=== PATIENT | male | born 1935 | race Caucasian/White ===

== ENCOUNTER 2016-09-07 15:04 | Observation (INO) ==
[2016-09-07] MEDS ORDERED: ONDANSETRON 4 MG/2 ML VIAL IV STA (16:40)
[2016-09-07] MEDS ORDERED: MORPHINE 2 MG/1 ML SYRINGE IV STA ×2 (16:40→18:12)
[2016-09-07] MEDS ORDERED: ONDANSETRON 4 MG/2 ML VIAL ONE (16:52)
[2016-09-07] MEDS ORDERED: MORPHINE 2 MG/1 ML SYRINGE ONE ×2 (16:52→18:35)
[2016-09-07 17:00] LABS: Basophils % 0.2 % (0.0-0.8); Eosinophils # 0.3 10*3/uL (0.0-0.87); Eosinophils % 3.1 % (0.00-10.9); Hematocrit 27.5 VOL% (42.0-52.0); Hemoglobin 9.4 GM/DL (14.0-18.0); Immature Granulocytes % 0.8 %; Immature Granulocytes Absolute 0.07 #; Lymphocytes # 1.1 10*3/uL (1.4-4.0); Lymphocytes % 12.9 % (21.2-54.2); Mean Corpuscular HGB Conc 34.2 GM/DL (32-36); Mean Corpuscular Hemoglobin 31 PG (27-34); Mean Corpuscular Volume 89.9 FL (87-102); Mean Platelet Volume 9.5 FL (9.6-12.0); Monocytes # 0.8 10*3/uL (0.11-0.8); Monocytes % 9.7 % (1.7-12.7); Neutrophils # 6.1 10*3/uL (1.4-7.4); Neutrophils % 73.3 % (38.7-73.9); Platelet Count 334 T/CUMM (130-400); Red Blood Count 3.06 MC/CUMM (3.8-5.5); Red Cell Distribution Width 13.5 % (9.3-17.3); White Blood Count 8.4 T/CUMM (4-12)
[2016-09-07 17:27] LABS: Apearance,Urine Slightly Hazy (Clear); Bilirubin,Urine Negative (Negative); Blood, Urine Moderate mg/dL (Negative); Glucose,Urine (UA) Negative (Negative); Ketones,Urine 5 mg/dL (Negative); Mucus,Urine Occasional /LPF (Occasional); Nitrite,Urine Negative (Negative); Protein,Urine 30 MG/DL; RBC,Urine 64 /HPF (0-4); Squamous Epithelial Cell,Urine Occasional /HPF (0-10); Urine Color Yellow (Yellow); Urine Specific Gravity 1.012 (1.001-1.035); Urine Urobilinogen < 2.0 EU/DL (0.2-1.0); WBC,Urine 3 /HPF (0-6)
[2016-09-07 17:32] LABS: Osmolality,Calculated 270.1 MOS/KG (273-304); Potassium 3.8 MMOL/L (3.5-5.1)
--- NOTE | 2016-09-07 17:42 | Ultrasound Report ---
Indication: Lower extremity swelling Duplex scan of the bilateral lower extremity veins Technique: Duplex scan of the bilateral lower extremity veins using B-mode/grayscale imaging and Doppler spectral analysis and color flow Findings: Major venous structures of the bilateral lower extremity demonstrate a normal course and caliber. There is no evidence of deep vein thrombosis. No abnormal intrinsic echogenic lesions are demonstrated in the scanned blood vessels. Veins demonstrate good compressibility with normal color flow study and spectral analysis. Impression: Unremarkable duplex imaging of the bilateral lower extremity veins. No evidence of DVT PROCEDURE INTERPRETED AT [facility] DEPARTMENT OF RADIOLOGY Final Report Signed by: Dakota Car
--- NOTE | 2016-09-07 17:58 | XRay Report ---
Exam: XR chest 1V portable Indication: Cough Comparison study: 10/16/2009 Findings: Cardiac silhouette is mildly enlarged, similar to prior. There is mild central and basilar interstitial prominence which appears similar to prior and likely represents underlying scarring. No definite focal consolidation is identified. There is no pneumothorax or pleural effusion. Similar mild prominence of the perihilar regions may represent prominent vascular structures, as seen previously, but is otherwise indeterminant. Impression: No acute cardiopulmonary process. Suggestion of mild cardiomegaly and underlying interstitial scarring changes. PROCEDURE INTERPRETED AT [facility] DEPARTMENT OF RADIOLOGY Final Report Signed by: Dakota Car
--- NOTE | 2016-09-07 18:29 | Hospitalist History & Physical ---
Assessment and Plan (1) s/p herniated disk repair Status: Acute Assessment and plan: Pt. is s/p herniated disk repair at outside facility. Brought into our non- urgent care department for placement. Pt. will be admitted for observation overnight. Pain medication ordered prn for pain. Consult to social media strategist for rehab placement. Current Visit: Yes (2) Hypertension Status: Acute Assessment and plan: Monitor patient. Continue home medications. Current Visit: Yes (3) Liver lesion Status: Chronic Current Visit: Yes History of Present Illness Chief complaint: swelling in lower extremities/pain History of present illness: Mr. Zepeda is a 80 year old white male with a history of htn, pneumonia, bronchitis, and a liver lesion who is s/p herniated disk repair on 08/29 at [facility] who presented to the ED with pain. Pt. is accompanied by niece and other family who are present at the bedside. Pt was hospitalized from 08/29 to 09/06 at [facility] before being discharged yesterday. After discharge, pt went the [facility] rehab facility but later discharged himself. Pt. states that the rehab facility did not restart any medications and his pain was uncontrolled. Pt. also reports bilateral lower extremity edema and other issues with the nursing staff. Pt. wishes to be referred to another facility. Pt. currently has anders cath in place after issue with retention during stay. He is scheduled to follow up tomorrow with Dr. Anderson to address this issue. The patient denies fever, chills, CP, shortness of breath, abdominal pain. Pt does however report a cough and said he had night sweats. Pt will be admitted to the hospital for observation with a consult to social media strategist for placement. Home Medications Medication Instructions Recorded Confirmed Type Esomeprazole Magnesium [Nexium] 40 mg PO DAILY 08/17/14 09/07/16 History Pravastatin [Pravachol] 20 mg PO QAM 08/17/14 09/07/16 History Aspirin [Aspirin EC] 81 mg PO DAILY 09/07/16 09/07/16 History Cholecalciferol (Vitamin D3) 1,000 unit PO QAM 09/07/16 09/07/16 History [Vitamin D3] Cyanocobalamin Tab [Vitamin B12 500 mcg PO QAM 09/07/16 09/07/16 History Tab] Diazepam Tab [Valium Tab] 5 mg PO TID PRN 09/07/16 09/07/16 History HYDROcodone/ACETAMIN 10-325 [[place] 1 tablet PO BID 09/07/16 09/07/16 History 10-325] Lisinopril 20 mg PO BID 09/07/16 09/07/16 History Magnesium Citrate 296 ml PO BID 09/07/16 09/07/16 History Potassium 99 mg PO QAM 09/07/16 09/07/16 History Tamsulosin HCl 0.4 mg PO DAILY 09/07/16 09/07/16 History Allergies Allergy/AdvReac Type Severity Reaction Status Date / Time Sulfa (Sulfonamide Allergy Severe Palpitation Verified 07/04/15 08:03 Antibiotics) s Medical,Surgical,& Family Hx - Medical History Cardio: History of: Hypertension Psychological: History of: Depression Neurology: No history of: Seizures HEENT: History of: Eye Problem (GLASSES) Endocrine: History of: Dyslipidemia Rheumatology: History of;: Rheumatoid Arthritis Respiratory: History of: Respiratory Problems (SINUS SURGERY) Genitourinary: History of: Bladder Problem (TURB), Problems (ON MED FOR URINATING PROBLEM) Gastrointestinal: History of: 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 - Surgical History Cardiac Surgeries: Sugical HX of: Cardiac Catheterization HEENT Surgeries: Surgical HX of: Eye Surgery (CATARACTS), Tonsilectomy & Adenoidectomy Abdominal Surgeries: Surgical HX of: Colonoscopy, EGD Reproductive Surgeries: Surgical HX of;: Cystoscopy, Genitourinary Surgery Orthopedic Surgeries: Surgical HX of;: Orthopedic Surgery (L3 4 5 SURGERY LEFT SHOULDER) - Family History Family History: Reports;: Family Heart Disease (FATHER) - Social History Smoking Status: Never smoker Frequency of Alcohol Use: None Type of Drug Use: None - Constitutional Constitutional: Present: fatigue, night sweats. Absent: fever(s), headache(s) - EENT Eyes: Present: loss of vision, requires corrective lense Ears: Absent: decreased hearing, ear discharge Nose, mouth and throat: Absent: headache(s), sore throat - Cardiovascular Cardiovascular: Present: edema. Absent: chest pain at rest, lightheadedness - Respiratory Respiratory: Absent: cough, dyspnea on exertion - Gastrointestinal Gastrointestinal: Absent: abdominal pain, nausea, vomiting - Genitourinary Genitourinary: Present: other (pt. has anders cath in place from outside facility ) - Musculoskeletal Musculoskeletal: Present: limited range of motion, muscle weakness - Neurological Neurological: Absent: confusion, dizziness - Psychiatric Psychiatric: Absent: anxiety, confusion - Endocrine Endocrine: Absent: fatigue - Hematologic/Lymphatic Hematologic/Lymphatic: Present: easy bruising. Absent: easy bleeding Exam - Constitutional Vitals: Period Temp Pulse Resp BP Sys/Wild Pulse Ox Last 24 Hr 98.1 F 95 20 160/104 99 General appearance: normal weight, no acute distress - Head Head exam: Present: normal inspection, normocephalic - Eye Eye exam: Present: EOMI. Absent: scleral icterus Pupils: Present: ARTEMIO. Absent: dilated - Neck Neck exam: Present: normal inspection - Respiratory Respiratory exam: Present: clear to auscultation bilaterally - Cardiovascular Cardiovascular exam: Present: regular rate and rhythm - GI/Abdominal GI/Abdominal exam: Present: normal bowel sounds, soft. Absent: tenderness - Extremities Exam Extremities exam: Present: normal capillary refill, full ROM, edema (bilateral lower extremity edema) - Neurological Exam Neurological exam: Present: alert, oriented X3, abnormal gait (pt. states he is unable to ambulate ) - Psychiatric Psychiatric exam: Present: normal affect, normal mood - Skin Skin exam: Present: normal color, warm, dry Results - Labs CBC & BMP: 09/07/16 16:47 09/07/16 16:47 Lab Results: I have reviewed the past 24 hour labs
--- NOTE | 2016-09-07 18:43 | Emergency Department Note ---
Rocael Sena Brittany, am scribing for, and in the presence of, Samina De Leon MD 16:45. Moises Sena Kathryn, MD, personally performed the services described in this documentation, ascribed by Indy Cote in my presence, and it is both accurate and complete [id number] . Arrival - Arrival Chief Complaint: Extremity Problem Stated Complaint: swelling in feet and leg/pain in legs,back,feet ED Nursing Triage Note: Pt has back surgery 08/29/16 at [facility] - pt states that he has been having edema to lower extremities since the surgery - pt was d/ c from [facility] yesterday and was sent to [facility] - pt signed out of [facility] and is not going back Mode of Arrival: Wheelchair Limitations: No Limitations Source: Patient - History of Present Illness HPI Narrative: This is an 80 y/o white male, who presents to the ED with back pain. He had a herniated disc repaired [id number] at [facility], was discharged the to the [facility] for rehab. Patient checked himself out of rehab yesterday secondary to uncontrolled pain (and not receiving pain meds), lower extremity swelling, and problems with the nursing staff. He has had worsening bilatearl lower extremity swelling since his surgery. He currently has a anders placed secondary to urinary retention post-operatively - he is supposed to call for follow up with Dr. Anderson tomorrow. He has been having cough and night sweats. He denies any CP, shortness of breath, palpitations, or abdominal pain. Last BM was yesterday. Onset (ago): day(s) (Started 9 days ago) Consistency: constant Severity: moderate Allergies/Adverse Reactions: Allergies Allergy/AdvReac Type Severity Reaction Status Date / Time Sulfa (Sulfonamide Allergy Severe Palpitation Verified 07/04/15 08:03 Antibiotics) s Home Medications: Home Medications Medication Instructions Recorded Confirmed Type Esomeprazole Magnesium [Nexium] 40 mg PO DAILY 08/17/14 09/07/16 History Pravastatin [Pravachol] 20 mg PO QAM 08/17/14 09/07/16 History Aspirin [Aspirin EC] 81 mg PO DAILY 09/07/16 09/07/16 History Cholecalciferol (Vitamin D3) 1,000 unit PO QAM 09/07/16 09/07/16 History [Vitamin D3] Cyanocobalamin Tab [Vitamin B12 500 mcg PO QAM 09/07/16 09/07/16 History Tab] Diazepam Tab [Valium Tab] 5 mg PO TID PRN 09/07/16 09/07/16 History HYDROcodone/ACETAMIN 10-325 [[place] 1 tablet PO BID 09/07/16 09/07/16 History 10-325] Lisinopril 20 mg PO BID 09/07/16 09/07/16 History Magnesium Citrate 296 ml PO BID 09/07/16 09/07/16 History Potassium 99 mg PO QAM 09/07/16 09/07/16 History Tamsulosin HCl 0.4 mg PO DAILY 09/07/16 09/07/16 History Review of System - Review of System 12 point system: reviewed and no additional remarkable complaints except as stated - Review of System Constitutional: Present: chills, fever Cardiovascular: Absent: chest pain Gastrointestinal: Absent: abdominal pain Musculoskeletal: Present: back pain, leg pain, other (Leg edema) Medical,Surgical,& Family Hx - Medical History Cardio: History of: Hypertension Psychological: History of: Depression Neurology: No history of: Seizures HEENT: History of: Eye Problem (GLASSES) Endocrine: History of: Dyslipidemia Rheumatology: History of;: Rheumatoid Arthritis Respiratory: History of: Respiratory Problems (SINUS SURGERY) Genitourinary: History of: Bladder Problem (TURB), Problems (ON MED FOR URINATING PROBLEM) Gastrointestinal: History of: 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 - Surgical History Cardiac Surgeries: Sugical HX of: Cardiac Catheterization HEENT Surgeries: Surgical HX of: Eye Surgery (CATARACTS), Tonsilectomy & Adenoidectomy Abdominal Surgeries: Surgical HX of: Colonoscopy, EGD Reproductive Surgeries: Surgical HX of;: Cystoscopy, Genitourinary Surgery Orthopedic Surgeries: Surgical HX of;: Orthopedic Surgery (L3 4 5 SURGERY LEFT SHOULDER) - Family History Family History: Reports;: Family Heart Disease (FATHER) - Social History Smoking Status: Never smoker Frequency of Alcohol Use: None Type of Drug Use: None Lives With:: Alone Exam Vital Signs: Vital Signs Temperature 98.1 F 09/07/16 15:12 Pulse Rate 95 H 09/07/16 15:12 Respiratory Rate 20 09/07/16 15:12 Blood Pressure 160/104 09/07/16 15:12 O2 Sat by Pulse Oximetry 99 09/07/16 15:12 - General General appearance: alert, in no apparent distress - Eye Eye exam: Present: normal appearance, PERRL, EOMI - ENT ENT exam: Present: normal exam, normal oropharynx, mucous membranes moist - Neck Neck exam: Present: normal inspection, full ROM, trachea midline - Chest Chest inspection: Present: normal inspection, symmetric chest wall rise. Absent : tenderness - Respiratory Respiratory exam: Present: normal lung sounds bilaterally. Absent: rales, rhonchi, wheezes - Cardiovascular Cardiovascular exam: Present: regular rate, normal rhythm, normal heart sounds. Absent: murmur, rubs, gallop - Abdominal Exam Abdominal exam: Present: soft, normal bowel sounds. Absent: distention, tenderness - Extremities Exam Extremities exam: Present: other (pitting edema to knees) - Neurological Exam Neurological exam: Present: alert, oriented X3, CN II-XII intact - Psychiatric Psychiatric exam: Present: normal affect, normal mood - Skin Skin exam: Present: warm, dry, intact Course Course Narrative: Review of documentation from [facility] brought by family - Surgery performed 28APR. At time of discharge, noted to have right foot drop (started post surgery). Patient was to schedule follow up with Dr. Anderson for urinary retention (anders placed 09/01). Follow up with [facility] Dr. Romero 09APR. Discussed with hospitalist for admission for pain control and transfer to new rehab center. Results - Labs CBC & BMP: 09/07/16 16:47 09/07/16 16:47 Lab Results: I have reviewed the patients labs Labs: Laboratory Tests 09/07/16 09/07/16 09/07/16 16:47 16:47 16:47 WBC 8.4 RBC 3.06 L Hgb 9.4 L Hct 27.5 L MCV 89.9 MCH 31 MCHC 34.2 RDW 13.5 Plt Count 334 MPV 9.5 L Neut % (Auto) 73.3 Lymph % (Auto) 12.9 L [place] % (Auto) 9.7 Eos % (Auto) 3.1 Baso % (Auto) 0.2 Neut # (Auto) 6.1 Lymph # (Auto) 1.1 L [place] # (Auto) 0.8 Eos # (Auto) 0.3 Baso # (Auto) 0.0 Immature Gran % 0.8 Nucleated RBC % 0.0 Immature Gran # 0.07 Nucleated RBCs # 0.00 Sodium 135 L Potassium 3.8 Chloride 100 Carbon Dioxide 26 Anion Gap 12.8 BUN 15 Creatinine 0.80 GFR Calculation 100 BUN/Creatinine Ratio 18.00 Glucose 97 Calculated Osmolality 270.1 L Calcium 8.0 L Urine Color Yellow Urine Appearance Slightly hazy Urine pH 7.0 Ur Specific [place] 1.012 Urine Protein 30 Urine Glucose (UA) Negative Urine Ketones 5 Urine Blood Moderate Urine Nitrate Negative Urine Bilirubin Negative Urine Urobilinogen < 2.0 H Urine Leukocytes Negative Urine RBC 64 Urine WBC 3 Ur Squamous Epith Cells Occasional Urine Mucus Occasional Ur Culture Indicated? Not indicated - Diagnostic Findings Procedure: Chest x-ray: report reviewed by me (No acute cardiopulmonary process.Suggestion of mild cardiomegaly and underlying interstitial scarring changes. ), Ultrasound: report reviewed by me (Venous Doppler Study: Unremarkable. No evidence of DVT. ) Disposition Clinical Impression: Previous back surgery, Back pain, Anders catheter in place on admission, Swelling of lower extremity Case discussed with: patient, patient's family Disposition: Still a Patient Condition: Stable Time of Disposition: 18:42
[2016-09-07] MEDS ORDERED: ACETAMINOPHEN 325 MG TABLET PO PRN (21:03)
[2016-09-07] MEDS ORDERED: ONDANSETRON 4 MG/2 ML VIAL IV PRN (21:03)
[2016-09-07] MEDS ORDERED: DOCUSATE SODIUM 100 MG CAPSULE PO PRN (21:03)
[2016-09-07] MEDS: LISINOPRIL 20 MG TABLET PO SCH (21:39)
[2016-09-07] MEDS: ENOXAPARIN 40 MG/0.4 ML SYRINGE SUBCUT SCH (21:39)
[2016-09-07] MEDS: FUROSEMIDE 20 MG TABLET PO SCH (21:39)
[2016-09-08 04:53] LABS: Basophils % 0.3 % (0.0-0.8); Eosinophils # 0.7 10*3/uL (0.0-0.87); Hematocrit 23.3 VOL% (42.0-52.0); Hemoglobin 7.9 GM/DL (14.0-18.0); Immature Granulocytes % 0.9 %; Immature Granulocytes Absolute 0.06 #; Lymphocytes # 1.2 10*3/uL (1.4-4.0); Lymphocytes % 18.2 % (21.2-54.2); Mean Corpuscular HGB Conc 33.9 GM/DL (32-36); Mean Corpuscular Hemoglobin 31 PG (27-34); Mean Corpuscular Volume 91.7 FL (87-102); Mean Platelet Volume 9.4 FL (9.6-12.0); Monocytes # 0.7 10*3/uL (0.11-0.8); Neutrophils # 4.1 10*3/uL (1.4-7.4); Neutrophils % 60.6 % (38.7-73.9); Platelet Count 299 T/CUMM (130-400); Red Blood Count 2.54 MC/CUMM (3.8-5.5); Red Cell Distribution Width 13.6 % (9.3-17.3); White Blood Count 6.7 T/CUMM (4-12)
[2016-09-08 05:24] LABS: Calcium 7.2 MG/DL (8.5-10.1); Osmolality,Calculated 277.4 MOS/KG (273-304); Potassium 3.5 MMOL/L (3.5-5.1)
[2016-09-08] MEDS: TAMSULOSIN 0.4 MG CAPSULE PO SCH (08:44)
[2016-09-08] MEDS: LISINOPRIL 20 MG TABLET PO SCH ×2 (08:44→20:53)
[2016-09-08] MEDS: FUROSEMIDE 20 MG TABLET PO SCH ×2 (08:44→16:55)
[2016-09-08] MEDS: ASPIRIN EC 81 MG TABLET PO SCH (08:44)
[2016-09-08] MEDS: PRAVASTATIN 20 MG TABLET PO SCH (10:04)
--- NOTE | 2016-09-08 11:54 | Case Mgmt Physician Query Form ---
TB Signs and Symptoms Screening ([place]) INSTRUCTIONS: To be completed annually on residents/staff with a significant Tuberculin Skin Test (TST) upon admission/hire or a prior significant TST. To be completed on all staff at hire. Please respond to each listed symptom with an (X) in either the "YES" or "NO" box. Do you currently have any of the following symptoms: YES NO ( ) ( x) A cough If yes, is it: ( ) Productive ( ) Non- productive ( ) ( x) Hemoptysis (spitting up blood) ( ) (x ) Chest pains ( ) ( x) Weight Loss ( ) (x ) Fever ( ) (x ) Night Sweats ( ) (x ) Weakness ( ) (x ) Loss of Appetite ( ) ( x) Difficulty Breathing If you answered YES" to any of the above questions, how long have symptoms been present? Comments: If you have any questions ,please contact me. Thank You YASMIN Earl, SOLE RUFFER Email :[email or web address]
[2016-09-08] MEDS ORDERED: TUBERCULIN SKIN TEST 0.1 ML SYRINGE INTRADERM ONE (12:05)
--- NOTE | 2016-09-08 12:31 | ECHO Report ---
Marcus Zepeda Exam Date: 09/08/2016 08:51 Referring Physician: Technologist: Traci Dietz LRMYA Age: 80 Ht (in): 71 Wt (lb): 187 Gender: M Exam Location: [facility] Echo Indications: edema, HTN BP: 134 / 63 HR: 77 Rhythm: Sinus Technical Quality: IMPRESSIONS Left ventricular ejection fraction is estimated at 55-60 %. There is mild concentric left ventricular hypertrophy with mild diastolic dysfunction. Mild mitral annular calcification with trace mitral regurgitation. Trace aortic valve regurgitation. Mild tricuspid valve regurgitation. MEASUREMENTS (Male / Female) Normal Values 2D ECHO LV Diastolic Diameter PLAX 4.0 cm 4.2 - 5.9 / 3.9 - 5.3 cm LV Systolic Diameter PLAX 2.9 cm LV Fractional Shortening PLAX 27.3 % IVS Diastolic Thickness 1.5 cm 0.6 - 1.0 / 0.6 - 0.9 cm LVPW Diastolic Thickness 1.5 cm 0.6 - 1.0 / 0.6 - 0.9 cm RV Internal Dim ED PLAX 2.7 cm Aortic Root Diameter 2.7 cm LA Systolic Diameter LX 3.6 cm 3.0 - 4.0 / 2.7 - 3.8 cm DOPPLER TR Peak Velocity 287.0 cm/s TR Peak Gradient 32.9 mmHg FINDINGS Left Ventricle Normal left ventricular size. There is mild concentric left ventricular hypertrophy with mild diastolic dysfunction. Left ventricular ejection fraction is estimated at 55-60 %. Right Ventricle Normal right ventricular size. Right Atrium Normal right atrial size. Left Atrium Normal left atrial size. Mitral Valve Mild mitral annular calcification with trace mitral regurgitation. Aortic Valve Mild aortic valve sclerosis. Trace aortic valve regurgitation. Tricuspid Valve Morphologically normal tricuspid valve. Mild tricuspid valve regurgitation. Tricuspid regurgitation velocities suggest a PAP of 32.9 mmHg + PAP. Pulmonic Valve Mild pulmonary valve regurgitation. Pericardium No pericardial effusion. Aorta Normal size aortic root and proximal ascending aorta. Destin Sood (Electronically Signed) Final Date: 08 Sep 2016 12:29
--- NOTE | 2016-09-08 14:15 | Hospitalist Progress Note ---
Assessment and Plan (1) s/p herniated disk repair Status: Acute Assessment and plan: 1)left foot drop after herniated disc- for rehab- to see PT and OT today and social work making referral to [facility] and [facility]. Disc repair was about 2 weeks ago at [facility] 2)HTN 3)urinary retention- was discharged from [facility] with anders. we have consulted urology as he was told the catheter should not come out until his urologist has seen him. He has seen Dr Anderson in the past. 4)anemia-hgb 7.9 this morning, a drop from 9.4 on admission. no sign of bleeding. recheck in am. 5)HTN- controlled on meds. EF 55-60%, mild diastolic dysfunction and concentric LVH. 6)LE edema- LE dopplers negative 7)ppx-on lovenox qday Current Visit: Yes (2) Hypertension Status: Acute Current Visit: Yes (3) Liver lesion Status: Chronic Current Visit: Yes (4) Anders catheter in place on admission Status: Acute Current Visit: Yes (5) Swelling of lower extremity Status: Acute Current Visit: Yes Hospitalist: Subjective Interval history: Mr Zepeda is feeling ok, and interested in beginning rehab to return to his former independent and painfree level of function. Exam - Constitutional Vitals: Period Temp Pulse Resp BP Sys/Wild Pulse Ox Last 24 Hr 97.7 F-100.2 F 69-81 18-20 126-170/61-82 95-100 General appearance: normal weight, no acute distress - Head Head exam: Present: normocephalic, atraumatic - Eye Eye exam: Present: EOMI. Absent: scleral icterus - Respiratory Respiratory exam: Present: clear to auscultation bilaterally - Cardiovascular Cardiovascular exam: Present: regular rate and rhythm - GI/Abdominal GI/Abdominal exam: Present: normal bowel sounds, soft. Absent: tenderness - Extremities Exam Extremities exam: Absent: edema - Neurological Exam Neurological exam: Present: alert, oriented X3, CN II-XII intact - Skin Skin exam: Present: warm, dry Results - Labs CBC & BMP: 09/08/16 04:28 09/08/16 04:28 Lab Results: I have reviewed the past 24 hour labs
[2016-09-08] MEDS: ENOXAPARIN 40 MG/0.4 ML SYRINGE SUBCUT SCH (20:53)
[2016-09-09] MEDS: PRAVASTATIN 20 MG TABLET PO SCH (08:21)
[2016-09-09] MEDS: TAMSULOSIN 0.4 MG CAPSULE PO SCH (08:21)
[2016-09-09] MEDS: LISINOPRIL 20 MG TABLET PO SCH ×2 (08:22→20:16)
[2016-09-09] MEDS: FUROSEMIDE 20 MG TABLET PO SCH ×2 (08:22→15:09)
[2016-09-09] MEDS: ASPIRIN EC 81 MG TABLET PO SCH (08:22)
--- NOTE | 2016-09-09 13:38 | Hospitalist Progress Note ---
Assessment and Plan (1) s/p herniated disk repair Status: Acute Assessment and plan: 1)left foot drop after herniated disc and surgery- PT and OT, referred to [facility], waiting for placement. 2)HTN-controlled on meds this morning, high earlier. monitor. EF 55-60% and mild diastolic dysfunction 3)urinary retention- anders out per Dr Anderson's instructions and monitoring PVR with bladder scan as he ordered 4)anemia- recheck in am. no sign of bleeding 5)LE edema- negative dopplers, edema better with diuresis 6)ppx- lovenox Current Visit: Yes (2) Hypertension Status: Acute Current Visit: Yes (3) Liver lesion Status: Chronic Current Visit: Yes (4) Anders catheter in place on admission Status: Acute Current Visit: Yes (5) Swelling of lower extremity Status: Acute Current Visit: Yes Hospitalist: Subjective Interval history: Mr Zepeda is feeling better, more hopeful today. He has walked a bit with PT and says he did better than he thought he would. He is waiting on word form his insurance company about [facility]. Exam - Constitutional Vitals: Period Temp Pulse Resp BP Sys/Wild Pulse Ox Last 24 Hr 98.2 F-100.2 F 67-88 18-20 126-188/67-88 95-99 General appearance: normal weight, no acute distress - Eye Eye exam: Present: EOMI. Absent: scleral icterus - Respiratory Respiratory exam: Present: clear to auscultation bilaterally - Cardiovascular Cardiovascular exam: Present: regular rate and rhythm - GI/Abdominal GI/Abdominal exam: Present: normal bowel sounds, soft - Extremities Exam Extremities exam: Present: edema (much less than on admission ) - Neurological Exam Neurological exam: Present: alert, oriented X3 Results - Labs CBC & BMP: 09/08/16 04:28 09/08/16 04:28 Lab Results: I have reviewed the past 24 hour labs
[2016-09-09] MEDS: ENOXAPARIN 40 MG/0.4 ML SYRINGE SUBCUT SCH (20:16)
[2016-09-10 06:18] LABS: Calcium 7.4 MG/DL (8.5-10.1); Osmolality,Calculated 279.4 MOS/KG (273-304); Potassium 3.9 MMOL/L (3.5-5.1)
[2016-09-10 06:20] LABS: Basophils % 0.4 % (0.0-0.8); Eosinophils # 0.8 10*3/uL (0.0-0.87); Eosinophils % 9.5 % (0.00-10.9); Hematocrit 25.3 VOL% (42.0-52.0); Hemoglobin 8.5 GM/DL (14.0-18.0); Immature Granulocytes % 0.8 %; Immature Granulocytes Absolute 0.07 #; Lymphocytes # 1.1 10*3/uL (1.4-4.0); Mean Corpuscular HGB Conc 33.6 GM/DL (32-36); Mean Corpuscular Hemoglobin 31 PG (27-34); Mean Platelet Volume 9.8 FL (9.6-12.0); Monocytes # 0.7 10*3/uL (0.11-0.8); Monocytes % 8.3 % (1.7-12.7); Neutrophils # 5.7 10*3/uL (1.4-7.4); Platelet Count 363 T/CUMM (130-400); Red Blood Count 2.78 MC/CUMM (3.8-5.5); Red Cell Distribution Width 13.7 % (9.3-17.3); White Blood Count 8.4 T/CUMM (4-12)
[2016-09-10] MEDS: ASPIRIN EC 81 MG TABLET PO SCH (08:28)
[2016-09-10] MEDS: TAMSULOSIN 0.4 MG CAPSULE PO SCH (08:29)
[2016-09-10] MEDS: LISINOPRIL 20 MG TABLET PO SCH (08:29)
[2016-09-10] MEDS: FUROSEMIDE 20 MG TABLET PO SCH (08:29)
[2016-09-10] MEDS: PRAVASTATIN 20 MG TABLET PO SCH (08:29)
[2016-09-10 11:30] VITALS: BP 145/75
--- NOTE | 2016-09-10 12:05 | Discharge Summary ---
<PlymouthNavi elena - Last Filed: 09/10/16 11:54> Hospital Course - Hospital Course Hospital Course: This patient is an 80-year-old male who was admitted as observation for rehab placement status post herniated disc repair on 08/29/2016 at [facility] in [place] and rehab at the [facility] after leaving [facility]. The patient and his family were displeased with the care he was receiving at the [facility] and discharged himself on 09/06/2016. He presented to the [facility] ED with complaints of pain and worsening bilateral lower extremity edema. The patient's hospital course was relatively uncomplicated. With consult to social media developer for rehab placement. Patient does have a history of CHF and echocardiogram done on 09/07/2016 revealed an EF of 55-60% without any significant valvular abnormalities. Patient was started on Lasix 20 mg p.o. twice daily. He was evaluated by PT and OT while here and showed significant improvement. The patient however was not a candidate for placement in [facility] rehab. He was, however, agreeable to home health with PT. The patient prefers to [facility] and will be discharged home today. He is reached maximum benefit from hospitalization at this time and is stable for discharge. Appropriate discharge instructions as well as follow-up instructions are in discharge orders per addendum from Dr. Rob. - Time spent with patient Time with patient DS: Greater than 30 minutes Diagnosis - Discharge Diagnosis (1) s/p herniated disk repair Status: Acute (2) Hypertension Status: Chronic (3) Swelling of lower extremity Status: Acute Specialty Discharge - Follow Up or Referrals Follow up with: your,PCP [Other] Discharge Plan - Discharge Data Disposition: Home Health Service - Discharge Medications New HYDROcodone/ACETAMIN 7.5-325 [[place] 7.5-325] 1 tablet PO Q4H PRN #30 tablet PRN Reason: Pain Moderate (4-7) Continue Esomeprazole Magnesium [Nexium] 40 mg PO DAILY Pravastatin [Pravachol] 20 mg PO QAM Lisinopril 20 mg PO BID Cholecalciferol (Vitamin D3) [Vitamin D3] 1,000 unit PO QAM Diazepam Tab [Valium Tab] 5 mg PO TID PRN PRN Reason: Anxiety Magnesium Citrate 296 ml PO BID Potassium 99 mg PO QAM Tamsulosin HCl 0.4 mg PO DAILY HYDROcodone/ACETAMIN 10-325 [[place] 10-325] 1 tablet PO BID Aspirin [Aspirin EC] 81 mg PO DAILY Cyanocobalamin Tab [Vitamin B12 Tab] 500 mcg PO QAM - Follow Up or Referral - Forms/Instructions Exam - Constitutional Vitals: Period Temp Pulse Resp BP Sys/Wild Pulse Ox Last 24 Hr 97.6 F-99.5 F 69-95 18-20 123-147/70-77 97-99 Exam: General appearance: over weight, no acute distress - Head Head exam: Present: normocephalic, atraumatic - Eye Eye exam: Present: EOMI. Absent: conjunctival injection, nystagmus Pupils: Present: ARTEMIO, normal accommodation - ENT ENT exam: Present: normal exam, normal external ear exam - Neck Neck exam: Present: normal inspection. Absent: lymphadenopathy, tenderness, thyromegaly - Respiratory Respiratory exam: Present: clear to auscultation bilaterally. Absent: rales, rhonchi, wheezes - Cardiovascular Cardiovascular exam: Present: regular rate and rhythm. Absent: carotid bruit, gallop, rubs - GI/Abdominal GI/Abdominal exam: Present: normal bowel sounds. Absent: ascites, distended, mass - Extremities Exam Extremities exam: Present: normal inspection, normal capillary refill. Absent: edema - Back Exam Back exam: Absent: CVA tenderness (L), CVA tenderness (R) - Neurological Exam Neurological exam: Present: alert, oriented X3 - Psychiatric Psychiatric exam: Present: normal affect, normal mood - Skin Skin exam: Present: normal color, warm, dry Discharge Results Labs on day of discharge: Labs from last 24 hours 09/10/16 09/10/16 04:37 04:37 WBC 8.4 RBC 2.78 L Hgb 8.5 L Hct 25.3 L MCV 91.0 MCH 31 MCHC 33.6 RDW 13.7 Plt Count 363 D MPV 9.8 Neut % (Auto) 68.0 Lymph % (Auto) 13.0 L [place] % (Auto) 8.3 Eos % (Auto) 9.5 Baso % (Auto) 0.4 Neut # (Auto) 5.7 Lymph # (Auto) 1.1 L [place] # (Auto) 0.7 Eos # (Auto) 0.8 Baso # (Auto) 0.0 Total Counted Not Reportable Immature Gran % 0.8 Nucleated RBC % 0.0 Immature Gran # 0.07 Nucleated RBCs # 0.00 Sodium 140 Potassium 3.9 Chloride 105 Carbon Dioxide 25 Anion Gap 13.9 BUN 15 Creatinine 0.90 GFR Calculation 97 BUN/Creatinine Ratio 16.00 Glucose 90 Calculated Osmolality 279.4 Calcium 7.4 L DS: Provider Date of admission: 09/07/16 18:25 Primary care physician: . No PCP Attending physician on admission: Darien Pierce MD Consults: 09/07/16 21:03 Consult to Case Mgmt/Social Srvs [CONS] Routine Reason for Case Mgmt/Social Srvs: Rehab Consult Comment: patient has had 3 midnight stay with 30 days; requests placement Consult to Occupational Therapy [CONS] Routine Reason for Occupational Therapy: Evaluate and Treat Consult to Physical Therapy [CONS] Routine Reason for Physical Therapy: Evaluate and Treat 09/08/16 12:34 Consult to Physician [CONS] Routine Comment: remove anders Consulting Provider: Lalit Anderson 09/10/16 12:19 Consult to Case Mgmt/Social Srvs [CONS] Routine Reason for Case Mgmt/Social Srvs: Home Health Consult Comment: Home health with PT Discharging clinician: Navi STARKS Expected date of discharge: 09/10/16 <Viky Trent - Last Filed: 09/10/16 14:01> Diagnosis - Discharge Diagnosis (1) s/p herniated disk repair Status: Acute (2) Hypertension Status: Chronic (3) Liver lesion Status: Chronic (4) Anders catheter in place on admission Status: Acute (5) Swelling of lower extremity Status: Acute Discharge Plan - Discharge Data Condition at Discharge: Stable Discharge Diet: advance to your usual diet Activity: resume usual activities as tolerated, ambulate only with your walker, as per physical therapy
== END 2016-09-10 14:58 | disposition home health service (06) ==
LOC: N.ED 15:04 → N.EDINP 15:04 → SUATTDRO 18:25 → N.TELEN 19:15
PROVIDERS: ADMIT Internal Medicine Infectious Disease; ATTEND Internal Medicine

== ENCOUNTER 2016-11-16 18:18 | Inpatient (IN) ==
[2016-11-16] MEDS ORDERED: ALUM/MAG/SIMETH/LIDO VISC 1:1 30 ML BOTTLE PO STA (19:01)
[2016-11-16] MEDS ORDERED: PANTOPRAZOLE 40 MG VIAL IV STA (19:01)
[2016-11-16] MEDS ORDERED: ONDANSETRON 4 MG/2 ML VIAL IV STA (19:01)
[2016-11-16] MEDS ORDERED: HYDROmorphone 2 MG/1 ML VIAL IV STA (19:01)
[2016-11-16] MEDS ORDERED: SODIUM CHLORIDE 0.9% 500 ML IV STA (19:01)
--- NOTE | 2016-11-16 19:19 | Emergency Department Note ---
IRocael Brittany, am scribing for, and in the presence of, Gilmar Rebolledo MD 19:17. Kesha Sena Charles R, MD, personally performed the services described in this documentation, ascribed by Indy Cote in my presence, and it is both accurate and complete . Arrival - Arrival Chief Complaint: Abdominal / Flank Pain Stated Complaint: severe pain on right side ED Nursing Triage Note: c/o being evaluated on thursday for right sided abdomen pain., states was told to come back if not better, states he had blood work and CT at that time, states the pain is not getting any better Mode of Arrival: Ambulatory Limitations: No Limitations Source: Patient Time Seen by Provider: 11/16/16 18:40 - History of Present Illness HPI Narrative: This is an 81 y/o white male,who presents to the ED with c/o abdominal pain which started 3 days ago. He states he was seen 2 days ago for the same complaint and was told to come back if not any better. At this time, he had blood work done which reads as follows: Laboratory Tests 11/14/16 11/14/16 11/14/16 05:06 05:06 05:06 WBC 6.9 RBC 3.77 L Hgb 11.5 L Hct 34.2 L MCV 90.7 MCH 31 MCHC 33.6 RDW 14.1 Plt Count 220 MPV 9.9 Neut % (Auto) 74.9 H Lymph % (Auto) 13.8 L [place] % (Auto) 7.1 Eos % (Auto) 3.6 Baso % (Auto) 0.3 Neut # (Auto) 5.2 Lymph # (Auto) 1.0 L [place] # (Auto) 0.5 Eos # (Auto) 0.3 Baso # (Auto) 0.0 Immature Gran % 0.3 Nucleated RBC % 0.0 Immature Gran # 0.02 Nucleated RBCs # 0.00 INR 1.0 PT Patient/Control Mix 10.2 Sodium 139 Potassium 3.9 Chloride 107 Carbon Dioxide 23 Anion Gap 12.9 BUN 24 H Creatinine 0.90 POC Creatinine GFR Calculation 92 POC Estimated GFR (eGFR) BUN/Creatinine Ratio 26.00 H Glucose 112 H Calculated Osmolality 281.5 Lactic Acid 1.6 Calcium 8.5 Magnesium 2.2 Total Bilirubin < 0.39 AST 25 ALT 28 Alkaline Phosphatase 128 H Troponin I < 0.015 Total Protein 6.7 Albumin 3.8 Globulin 2.9 Albumin/Globulin Ratio 1.3 Amylase 58 Lipase 135.0 11/14/16 05:37 WBC RBC Hgb Hct MCV MCH MCHC RDW Plt Count MPV Neut % (Auto) Lymph % (Auto) [place] % (Auto) Eos % (Auto) Baso % (Auto) Neut # (Auto) Lymph # (Auto) [place] # (Auto) Eos # (Auto) Baso # (Auto) Immature Gran % Nucleated RBC % Immature Gran # Nucleated RBCs # INR PT Patient/Control Mix Sodium Potassium Chloride Carbon Dioxide Anion Gap BUN Creatinine POC Creatinine 0.74 GFR Calculation POC Estimated GFR (eGFR) > 60 BUN/Creatinine Ratio Glucose Calculated Osmolality Lactic Acid Calcium Magnesium Total Bilirubin AST ALT Alkaline Phosphatase Troponin I Total Protein Albumin Globulin Albumin/Globulin Ratio Amylase Lipase He also had a CT of the abdomen performed which reads as follows: Complex cystic liver lesion has decreased in size since the time of the comparison study and there is evidence of prior aspiration. The appearance on today's study is favored to reflect decompressed cyst. Adjacent smaller cyst within the hepatic parenchyma are present and appear to have changed little since the comparison CT. 2. Prior lumbar and sacral laminectomy with posterior fusion of the lumbar sacral spine. 3. Focal thinning of the posterior gastric wall within the distal gastric antrum is noted in the region of outpouching of the gastric wall. No serosal stranding is present. This could reflect asymmetry of the gastric antrum or ulceration. Consideration of EGD is recommended. He localizes the pain to the RUQ and right CVA area. He notes he has been burping a nasty taste up. Pt has no other complaints/pain in the ED at this time. Pt has a PMHx of RA, HTN, dyslipidemia, bladder problems, respiratory problems, prostate problems, liver problems, and back/neck problems. Pt has had a negative heart cath, eye surgery, cystoscopy, orthopedic surgery, tonsilectomy , colonoscopy, hernia repair, EGD, spinal surgery, prostate surgery, genitourinary surgery, and a family medical Hx of heart disease. Onset (ago): day(s) (Staretd 3 days ago) Consistency: constant Severity: severe Allergies/Adverse Reactions: Allergies Allergy/AdvReac Type Severity Reaction Status Date / Time Sulfa (Sulfonamide AdvReac Intermediate Palpitation Verified 11/16/16 18:23 Antibiotics) s diazepam [From Valium] AdvReac Mild Nausea Verified 11/16/16 18:23 Home Medications: Home Medications Medication Instructions Recorded Confirmed Type Esomeprazole Magnesium [Nexium] 40 mg PO DAILY 08/17/14 11/16/16 History Pravastatin [Pravachol] 20 mg PO QAM 08/17/14 11/16/16 History Aspirin [Aspirin EC] 81 mg PO DAILY 09/07/16 11/16/16 History Cholecalciferol (Vitamin D3) 1,000 unit PO QAM 09/07/16 11/16/16 History [Vitamin D3] Cyanocobalamin Tab [Vitamin B12 500 mcg PO QAM 09/07/16 11/16/16 History Tab] HYDROcodone/ACETAMIN 10-325 [[place] 1 tablet PO BID PRN 09/07/16 11/16/16 History 10-325] Lisinopril 20 mg PO BID 09/07/16 11/16/16 History Potassium 99 mg PO QAM 09/07/16 11/16/16 History Tamsulosin HCl 0.4 mg PO DAILY 09/07/16 11/16/16 History Venlafaxine [Effexor] 75 mg PO DAILY 11/10/16 11/16/16 History Omeprazole [Prilosec] 20 mg PO DAILY #30 capsule 11/14/16 11/16/16 Rx Ondansetron Odt Tab [Zofran Odt] 4 mg PO Q6H PRN #20 tablet 11/14/16 11/16/16 Rx Review of System - Review of System 12 point system: reviewed and no additional remarkable complaints except as stated - Review of System Gastrointestinal: Present: abdominal pain (RUQ pain ), nausea, other ("Burping nasty tastes up") Medical,Surgical,& Family Hx - Medical History Cardio: History of: Hypertension Psychological: History of: Depression Neurology: No history of: Seizures HEENT: History of: Eye Problem (GLASSES), HEENT Problems (Sinus Surgery) No history of: Ear Problem, Dental Problems Endocrine: History of: Dyslipidemia Rheumatology: History of;: Rheumatoid Arthritis Respiratory: History of: Respiratory Problems (SINUS SURGERY; Flu Vac Current 2015/2016 Season) No history of: Pneumonia (Pneum Vac around 2013) Genitourinary: History of: Bladder Problem (TURB), Prostate Problems (BPH), Problems (ON MED FOR URINATING PROBLEM) Gastrointestinal: History of: Liver Problems (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-drained 11/12/16) Musculoskeletal: History of: Back/Neck Problems, Musculoskeletal Problems ( Arthritis) Hematology: No history of: Blood Transfusion Reaction (Hx Transfusions) Other: History of: Anesthesia Reactions (N/V), MRSA (Dx past sinus Surgery; Prostate Surgery) No history of: Cancer - Surgical History Cardiac Surgeries: Sugical HX of: Cardiac Catheterization (Negative; Several years ago) HEENT Surgeries: Surgical HX of: Eye Surgery (CATARACTS), Tonsilectomy & Adenoidectomy Abdominal Surgeries: Surgical HX of: Colonoscopy, EGD, Hernia Repair (Umbilical Hernia) Reproductive Surgeries: Surgical HX of;: Cystoscopy, Genitourinary Surgery ( TURB 30 yrs ago), Prostate Surgery Orthopedic Surgeries: Surgical HX of;: Orthopedic Surgery (Lt RCR), Spinal Surgery (L3,4,5; 08/27/16 "Major Back Surgery in [place]-Plates/Pins") - Family History Family History: Reports;: Family Heart Disease (FATHER) - Social History Smoking Status: Unknown if ever smoked Frequency of Alcohol Use: None Type of Drug Use: None Exam Vital Signs: Vital Signs Temperature 97.5 F L 11/16/16 18:35 Pulse Rate 65 11/16/16 18:35 Respiratory Rate 20 11/16/16 18:35 Blood Pressure 137/72 11/16/16 18:35 O2 Sat by Pulse Oximetry 98 11/16/16 18:35 - General General appearance: alert, in no apparent distress - Head Head exam: Present: atraumatic, normocephalic, normal inspection - Eye Eye exam: Present: normal appearance, PERRL, EOMI. Absent: conjunctival injection, nystagmus, miosis, mydriasis - ENT ENT exam: Present: normal exam, normal oropharynx, mucous membranes moist, TM's normal bilaterally, normal external ear exam - Neck Neck exam: Present: normal inspection, full ROM, trachea midline. Absent: tenderness, meningismus, lymphadenopathy, thyromegaly - Chest Chest inspection: Present: normal inspection, symmetric chest wall rise. Absent : tenderness, rash, abscess - Respiratory Respiratory exam: Present: normal lung sounds bilaterally. Absent: rales, respiratory distress, stridor - Cardiovascular Cardiovascular exam: Present: regular rate, normal rhythm, normal heart sounds. Absent: murmur, rubs, gallop, clicks, JVD - Abdominal Exam Abdominal exam: Present: soft, tenderness (RUQ tenderness), diminished bowel sounds. Absent: distention, guarding, rebound, rigidity - Rectal Exam Rectal exam: Present: deferred - Extremities Exam Extremities exam: Present: normal capillary refill, pedal edema (+1 pitting edema). Absent: tenderness, joint swelling, calf tenderness - Back Exam Back exam: Present: CVA tenderness (R). Absent: tenderness, muscle spasm, rashes - Neurological Exam Neurological exam: Present: alert, oriented X3, CN II-XII intact. Absent: motor sensory deficit - Psychiatric Psychiatric exam: Present: normal affect, normal mood. Absent: depressed, agitated, anxious, flat affect, manic - Skin Skin exam: Present: warm, dry, intact, normal color. Absent: rash, cyanosis, diaphoresis, erythema, pallor, mottled Course - Consultations Consultation #1: Dr. Torres will see patient emergency room for possible admission for acute cholecystitis. Dr. Torres will admit patient Time: 19:46 Consultation #2: Dr. Redmond's patient be admitted to Dr. Torres dopamine talk to him for him to follow him medically Time: 19:46 Results - Labs CBC & BMP: 11/16/16 19:06 11/16/16 19:06 Lab Results: I have reviewed the patients labs - Diagnostic Findings Procedure: Ultrasound: image reviewed by me (Color wall thickening and sludge noted in the gallbladder) Disposition Clinical Impression: Liver lesion, Liver cyst, Biliary colic, Acute cholecystitis, Abdominal pain Case discussed with: patient, patient's family Disposition: Still a Patient Condition: Stable Time of Disposition: 19:44
[2016-11-16 19:20] LABS: Basophils % 0.3 % (0.0-0.8); Eosinophils # 0.4 10*3/uL (0.0-0.87); Eosinophils % 3.9 % (0.00-10.9); Hematocrit 33.9 VOL% (42.0-52.0); Hemoglobin 11.5 GM/DL (14.0-18.0); Immature Granulocytes % 0.3 %; Immature Granulocytes Absolute 0.03 #; Lymphocytes # 1.5 10*3/uL (1.4-4.0); Lymphocytes % 16.7 % (21.2-54.2); Mean Corpuscular HGB Conc 33.9 GM/DL (32-36); Mean Corpuscular Hemoglobin 31 PG (27-34); Mean Corpuscular Volume 90.6 FL (87-102); Mean Platelet Volume 10.1 FL (9.6-12.0); Monocytes # 0.8 10*3/uL (0.11-0.8); Monocytes % 8.3 % (1.7-12.7); Neutrophils # 6.4 10*3/uL (1.4-7.4); Neutrophils % 70.5 % (38.7-73.9); Platelet Count 205 T/CUMM (130-400); Red Blood Count 3.74 MC/CUMM (3.8-5.5); Red Cell Distribution Width 14.1 % (9.3-17.3)
[2016-11-16] MEDS ORDERED: PANTOPRAZOLE 40 MG VIAL IV ONE (19:28)
[2016-11-16] MEDS ORDERED: HYDROmorphone 2 MG/1 ML VIAL ONE (19:28)
[2016-11-16] MEDS ORDERED: ALUM/MAG/SIMETH/LIDO VISC 1:1 30 ML BOTTLE PO ONE (19:28)
[2016-11-16] MEDS ORDERED: ONDANSETRON 4 MG/2 ML VIAL ONE (19:28)
[2016-11-16 19:32] LABS: Lactic Acid 1.2 MMOL/L (0.4-2.0)
[2016-11-16 19:33] LABS: Alanine Aminotransferase 25 U/L (16-61); Albumin 3.6 G/DL (3.4-5.0); Alkaline Phosphatase 128 U/L (45-117); Amylase 45 U/L (25-115); Aspartate Amino Transferase 22 U/L (0-37); Bilirubin,Total < 0.39 MG/DL (0.2-1.0); Blood Urea Nitrogen 20 MG/DL (7-18); Calcium 8.4 MG/DL (8.5-10.1); Glucose 158 MG/DL (74-106); Magnesium 2.2 MG/DL (1.8-2.4); Osmolality,Calculated 280.7 MOS/KG (273-304); Potassium 3.5 MMOL/L (3.5-5.1); Sodium 138 MMOL/L (136-145); Total Protein 6.7 G/DL (6.4-8.3); Troponin I Only < 0.015 NG/ML (0.00-0.045)
--- NOTE | 2016-11-16 19:57 | General Surg History&Physical ---
Assessment and Plan (1) Acute cholecystitis Status: Acute Assessment and plan: This patient clinically has evidence of acute cholecystitis which is confirmed by ultrasound. I have recommended admission with laparoscopic cholecystectomy. Certainly has hepatic cysts complicates the situation but since it is only 5 cm in size and has not appeared infected on prior aspirations I think the best thing to do is go ahead and remove his gallbladder and then follow him clinically afterwards. I do not recommend any surgical intervention on his cyst. I discussed the risks, benefits, and alternatives of the operation, and the expected outcomes have been reviewed. In particular, I discussed the risk of bleeding, infection, hernias of the abdominal wall, injury to the intestines or liver, pancreatitis, dropped or retained stones in the abdomen, bile leak, and bile duct injury. The patient's questions have been answered. Current Visit: Yes History of Present Illness Chief complaint: Abdominal pain History of present illness: Mr. Zepeda is a 81 year old male presents to the ER with recurrent right upper quadrant abdominal pain. He has been having a hepatic cyst treated with intermittent drainage but his pain today worsened in the right upper quadrant and his workup in the ER revealed gallbladder wall thickening with sludge. He is focally tender in the right upper quadrant with nausea. His pain is worse after eating this past week. He has been to the ER multiple times. Home Medications Medication Instructions Recorded Confirmed Type Esomeprazole Magnesium [Nexium] 40 mg PO DAILY 08/17/14 11/16/16 History Pravastatin [Pravachol] 20 mg PO QAM 08/17/14 11/16/16 History Aspirin [Aspirin EC] 81 mg PO DAILY 09/07/16 11/16/16 History Cholecalciferol (Vitamin D3) 1,000 unit PO QAM 09/07/16 11/16/16 History [Vitamin D3] Cyanocobalamin Tab [Vitamin B12 500 mcg PO QAM 09/07/16 11/16/16 History Tab] HYDROcodone/ACETAMIN 10-325 [[place] 1 tablet PO BID PRN 09/07/16 11/16/16 History 10-325] Lisinopril 20 mg PO BID 09/07/16 11/16/16 History Potassium 99 mg PO QAM 09/07/16 11/16/16 History Tamsulosin HCl 0.4 mg PO DAILY 09/07/16 11/16/16 History Venlafaxine [Effexor] 75 mg PO DAILY 11/10/16 11/16/16 History Omeprazole [Prilosec] 20 mg PO DAILY #30 capsule 11/14/16 11/16/16 Rx Ondansetron Odt Tab [Zofran Odt] 4 mg PO Q6H PRN #20 tablet 11/14/16 11/16/16 Rx Allergies Allergy/AdvReac Type Severity Reaction Status Date / Time Sulfa (Sulfonamide AdvReac Intermediate Palpitation Verified 11/16/16 18:23 Antibiotics) s diazepam [From Valium] AdvReac Mild Nausea Verified 11/16/16 18:23 Medical,Surgical,& Family Hx - Medical History Cardio: History of: Hypertension Psychological: History of: Depression Neurology: No history of: Seizures HEENT: History of: Eye Problem (GLASSES), HEENT Problems (Sinus Surgery) No history of: Ear Problem, Dental Problems Endocrine: History of: Dyslipidemia Rheumatology: History of;: Rheumatoid Arthritis Respiratory: History of: Respiratory Problems (SINUS SURGERY; Flu Vac Current 2015/2016 Season) No history of: Pneumonia (Pneum Vac around 2013) Genitourinary: History of: Bladder Problem (TURB), Prostate Problems (BPH), Problems (ON MED FOR URINATING PROBLEM) Gastrointestinal: History of: Liver Problems (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-drained 11/12/16) Musculoskeletal: History of: Back/Neck Problems, Musculoskeletal Problems ( Arthritis) Hematology: No history of: Blood Transfusion Reaction (Hx Transfusions) Other: History of: Anesthesia Reactions (N/V), MRSA (Dx past sinus Surgery; Prostate Surgery) No history of: Cancer - Surgical History Cardiac Surgeries: Sugical HX of: Cardiac Catheterization (Negative; Several years ago) HEENT Surgeries: Surgical HX of: Eye Surgery (CATARACTS), Tonsilectomy & Adenoidectomy Abdominal Surgeries: Surgical HX of: Colonoscopy, EGD, Hernia Repair (Umbilical Hernia) Reproductive Surgeries: Surgical HX of;: Cystoscopy, Genitourinary Surgery ( TURB 30 yrs ago), Prostate Surgery Orthopedic Surgeries: Surgical HX of;: Orthopedic Surgery (Lt RCR), Spinal Surgery (L3,4,5; 08/27/16 "Major Back Surgery in [place]-Plates/Pins") - Family History Family History: Reports;: Family Heart Disease (FATHER) - Social History Smoking Status: Unknown if ever smoked Frequency of Alcohol Use: None Type of Drug Use: None Exam - Constitutional Vitals: Period Temp Pulse Resp BP Sys/Wild Pulse Ox Last 24 Hr 97.5 F-97.9 F 65-75 18-20 137-143/72-75 98-98 General appearance: normal weight, no acute distress - Head Head exam: Present: normal inspection, normocephalic - Eye Eye exam: Present: EOMI Pupils: Present: ARTEMIO - ENT ENT exam: Present: normal exam Mouth exam: Present: normal external inspection, normal voice - Neck Neck exam: Present: normal inspection, trachea midline - Respiratory Respiratory exam: Present: clear to auscultation bilaterally. Absent: accessory muscle use, chest wall tenderness - Cardiovascular Cardiovascular exam: Present: RRR. Absent: systolic murmur, tachycardia - GI/Abdominal GI/Abdominal exam: Present: normal bowel sounds, Hughes's sign, soft. Absent: tenderness, rebound - Extremities Exam Extremities exam: Present: normal inspection, normal capillary refill - Back Exam Back exam: Present: normal inspection - Neurological Exam Neurological exam: Present: alert, oriented X3 Speech: Present: normal - Skin Skin exam: Present: normal color, warm - Constitutional Constitutional: Present: as per HPI - EENT Nose, mouth and throat: Present: as per HPI - Cardiovascular Cardiovascular: Present: as per HPI - Respiratory Respiratory: Present: as per HPI - Gastrointestinal Gastrointestinal: Present: as per HPI - Genitourinary Genitourinary: Present: as per HPI - Musculoskeletal Musculoskeletal: Present: as per HPI - Neurological Neurological: Present: as per HPI - Endocrine Endocrine: Present: as per HPI Hematologic/Lymphatic: Present: as per HPI Results - Labs CBC & BMP: 11/16/16 19:06 11/16/16 19:06 - Diagnostic Findings Procedure: Ultrasound: report reviewed by me, image reviewed by me (Gallbladder wall thickening with sludge)
--- NOTE | 2016-11-16 20:08 | Ultrasound Report ---
Gallbladder ultrasound. Indication: Right upper quadrant pain. Comparison: October 24, 2016. The liver is normal in size. There is fatty infiltration of the liver. Within the right lobe of the liver, there is a septated cyst measuring 5.2 x 5.2 x 4.6 cm. The gallbladder is distended. There is gallbladder wall thickening and a small amount of para cholecystic fluid. There is sludge within the gallbladder but no stones are seen. The patient was tender over the gallbladder. Visualized portions of the pancreas appear normal. The pancreas is partially obscured by bowel gas. The common duct measures 4 mm. Impression: 1. The gallbladder is distended, with wall thickening, sludge, and tenderness. A calculus cholecystitis is a consideration. 2. There is a complex cystic area within the right lobe of the liver, measuring 4.6 x 5.2 cm on today's exam. This was previously drained. It is similar to the recent previous CT. PROCEDURE INTERPRETED AT [facility] DEPARTMENT OF RADIOLOGY Final Report Signed by: Dr. Patsy Ngo
--- NOTE | 2016-11-16 20:12 | XRay Report ---
2 view abdomen. Indication: Generalized abdominal pain. Comparison: November 14, 2016. The heart is normal in size. Hiatal hernia is suggested. No free air. No organomegaly. No abnormal calcifications over the renal outlines. Bowel gas pattern is normal. Phleboliths in the left pelvis. Injection granulomas the right hip. Surgical hardware at the lumbosacral junction. Scoliosis and degenerative change at the spinal column. Impression: No acute abnormality. PROCEDURE INTERPRETED AT [facility] DEPARTMENT OF RADIOLOGY Final Report Signed by: Dr. Patsy Ngo
[2016-11-16] MEDS ORDERED: PROMETHAZINE 25 MG/1 ML VIAL IM PRN (22:27)
[2016-11-16] MEDS ORDERED: HYDROmorphone 2 MG/1 ML VIAL IV PRN (22:27)
[2016-11-16] MEDS ORDERED: ACETAMINOPHEN 325 MG TABLET PO PRN (22:27)
[2016-11-16] MEDS ORDERED: ONDANSETRON 4 MG/2 ML VIAL IV PRN (22:27)
[2016-11-16] MEDS: LACTATED RINGERS 1,000 ML IV SCH (22:48)
[2016-11-16] MEDS: PIPERACILLIN/TAZOBACTAM 3,375 MG in SODIUM CHLORIDE 0.9% 100 ML IV SCH (23:29)
[2016-11-17] MEDS ORDERED: SCOPOLAMINE 1.5 MG PATCH TRANSDERM ONE (06:19)
[2016-11-17] MEDS: LACTATED RINGERS 1,000 ML IV SCH ×3 (06:35→20:04)
[2016-11-17] MEDS: PIPERACILLIN/TAZOBACTAM 3,375 MG in SODIUM CHLORIDE 0.9% 100 ML IV SCH (06:47)
[2016-11-17] MEDS: VENLAFAXINE 75 MG TABLET PO SCH (08:09)
[2016-11-17] MEDS: TAMSULOSIN 0.4 MG CAPSULE PO SCH (08:09)
[2016-11-17] MEDS: PANTOPRAZOLE 40 MG TABLET PO SCH (08:09)
[2016-11-17] MEDS: POTASSIUM GLUCONATE 500 MG TABLET PO SCH (08:09)
[2016-11-17] MEDS: ASPIRIN EC 81 MG TABLET PO SCH (08:09)
[2016-11-17] MEDS: PRAVASTATIN 20 MG TABLET PO SCH (08:09)
[2016-11-17] MEDS: CYANOCOBALAMIN 500 MCG TABLET PO SCH (08:10)
[2016-11-17] MEDS: CHOLECALCIFEROL 1,000 UNIT TABLET PO SCH (08:10)
--- NOTE | 2016-11-17 08:36 | EKG Report ---
Stationary ECG Study [facility] ER Test Date: 11/16/2016 7:47:58 PM Pat Name: TRISHA MACEDO Department: Room: 336 Gender: M Second Worker: : 1935 Requested by: Gilmar Mark Order Number: [id number] Reading MD: SUSSY ROCKWELL Intervals [place] Rate: 71 P: 38 MA: 196 QRS: 44 QRSD: 100 T: 21 QT: 389 QTc: 412 Interpretive Statements SINUS RHYTHM POSSIBLE INFERIOR MYOCARDIAL INFARCTION, PROBABLY OLD WITH POSTERIOR EXTENSION IF PRESENT Electronically Signed On 11-17-16 09:59:46 CDT by SUSSY ROCKWELL [email or web address]
[2016-11-17] MEDS ORDERED: NON-FORMULARY MEDICATION (Omeprazole [Prilosec] 20 MG) PO SCH (09:00)
[2016-11-17] MEDS ORDERED: NON-FORMULARY MEDICATION (Esomeprazole Magnesium [Nexium] 40 MG) PO SCH (09:00)
[2016-11-17] MEDS ORDERED: TISSUE ADHESIVE 1 EACH APPLICATOR TOP ONE (12:06)
[2016-11-17] MEDS ORDERED: LIDOCAINE 1%/EPI INJ 20 ML VIAL ONE (12:06)
[2016-11-17] MEDS ORDERED: NEOSTIGMINE 10 MG/10 ML VIAL ONE (12:42)
[2016-11-17] MEDS ORDERED: ONDANSETRON 4 MG/2 ML VIAL ONE (12:42)
[2016-11-17] MEDS ORDERED: GLYCOPYRROLATE 0.4 MG/2 ML VIAL ONE (12:42)
[2016-11-17] MEDS ORDERED: LIDOCAINE 2% 5 ML VIAL ONE (12:42)
[2016-11-17] MEDS ORDERED: PHENYLEPHRINE 1 MG/10 ML SYRINGE IV ONE (12:42)
[2016-11-17] MEDS ORDERED: PROPOFOL 200 MG/20 ML VIAL IV ONE (12:42)
[2016-11-17] MEDS ORDERED: ROCURONIUM 100 MG/10 ML VIAL IV ONE (12:42)
[2016-11-17] MEDS ORDERED: fentaNYL 100 MCG/2 ML VIAL ONE (13:15)
--- NOTE | 2016-11-17 13:32 | Operative Note ---
Date of procedure: 11/17/16 Pre-op diagnosis: Acute cholecystitis Post-op diagnosis: same Procedure: Preoperative diagnosis Acute cholecystitis Postoperative diagnosis Same Procedures performed Laparoscopic cholecystectomy Findings Acute and chronic cholecystitis was seen. The critical view of safety was obtained prior to placing clips on the cystic duct and cystic artery. The liver cyst was visualized and pictures were taken. This appeared benign consistent with axial imaging. Complications None apparent Specimen Gallbladder Anesthesia GETA Blood loss 5 mL Indications Acute cholecystitis. The risks, benefits, and alternatives of the operation were discussed with the patient in detail, and the expected outcomes were reviewed. In particular, the risk of bowel injury, liver injury, bile duct leak and bile duct injury, as well as pancreatitis and retained or drop stones were discussed in detail. All the patient's questions were answered. She like to proceed with the operation. Description of procedure The patient was taken to the operating room and transferred to the operating table in the supine position. Pressure points were padded and SCDs were placed to bilateral lower extremities. General endotracheal anesthesia was administered. The abdomen was prepped chlorhexidine and draped sterilely. Preoperative antibiotics were administered, a timeout was performed. The abdomen was entered in a supraumbilical location of the Veress needle. The skin incision was made in the supraumbilical location with a 11 blade scalpel after local anesthetic was administered. Umbilical stalk was grasped with a penetrating towel clip. A Veress needle was used to enter the peritoneal cavity confirmed by double click technique. Aspiration was negative. Saline drop test confirmed intraperitoneal location. The abdomen was insufflated to 15 mmHg with an initial insufflation pressure of 2 mmHg. The Veress needle was removed and a 5 mm trocar was placed blindly. The towel clip was removed. Diagnostic laparoscopy was performed. There is no evidence of Veress needle or trocar injury. The patient was placed in reverse Trendelenburg and left side rolled down position. Under direct visualization, and after local anesthetic was administered, an 11 mm midepigastric trocar and 2 right subcostal 5 mm trochars were placed. The gallbladder was very friable and tore easily because of early gangrenous changes. There is some bile spillage which was suction irrigated. It was very friable down to the cystic duct of the cystic duct appeared healthy. The gallbladder was grasped at the fundus and infundibulum. The cystic plate peritoneum was dissected into the critical view of safety was obtained. The cystic duct and cystic artery were clipped twice initially and once laterally and divided laparoscopically with scissors between clips. The right hepatic cyst was visualized during retraction of the gallbladder and pictures were taken. This appeared soft and had no concerning features laparoscopically. The gallbladder was removed from the gallbladder fossa using hook electrocautery. The gallbladder was placed in a Endo Catch retrieval bag through the 11 mm trocar and removed through the trocar with no significant fascial extension of the incision. The gallbladder fossa was suction irrigated until the effluent was clear. The CO2 was released from the abdomen and the trochars were removed. The skin incisions were closed with 4-0 Monocryl subcuticular suture and sterile skin glue. The patient was awakened from anesthesia and transferred to recovery. Postoperative plan Advance diet as tolerated Pain control Anesthesia: MARVA, local Surgeon / Physician: Arnaud Torres Estimated blood loss: minimal Specimens: other (gallbladder) Condition: stable Disposition: PACU Results - Labs CBC & BMP: 11/16/16 19:06 11/16/16 19:06 Discharge Plan - Discharge Data Disposition: Disch To Home/Self Care Condition at Discharge: Stable Discharge Diet: advance to your usual diet Activity: no lifting Hygiene: may shower Driving: other (Do not drive or operate heavy machinery for at least 24 hours and after you are off of narcotic pain medications.) Contact your physician if you experience:: fever over 101, Difficulty voiding, Redness or swelling, Nausea/Vomiting, Shortness of breath, Bleeding, pain uncontrolled by pain medications Wound / Dressing Care Instructions: It is okay to shower. Do not scrub the incision aggressively or submerge it under water. - Discharge Medications New HYDROcodone/ACETAMIN 7.5-325 [[place] 7.5-325] 1 tablet PO Q4H PRN #30 tablet PRN Reason: Pain Moderate (4-7) Continue Esomeprazole Magnesium [Nexium] 40 mg PO DAILY Pravastatin [Pravachol] 10 mg PO QAM Lisinopril 20 mg PO BID Cholecalciferol (Vitamin D3) [Vitamin D3] 1,000 unit PO QAM Potassium 99 mg PO QAM Tamsulosin HCl 0.4 mg PO DAILY Ondansetron Odt Tab [Zofran Odt] 4 mg PO Q6H PRN #20 tablet PRN Reason: Nausea/Vomiting Aspirin [Aspirin EC] 81 mg PO DAILY Cyanocobalamin Tab [Vitamin B12 Tab] 500 mcg PO QAM Venlafaxine [Effexor] 75 mg PO DAILY Omeprazole [Prilosec] 20 mg PO DAILY #30 capsule Discontinued HYDROcodone/ACETAMIN 10-325 [[place] 10-325] 1 tablet PO BID PRN PRN Reason: Pain - Follow Up or Referral Follow Up: Arnaud Torres MD [Physician] - 2 Weeks - Forms/Instructions
--- NOTE | 2016-11-17 17:46 | Anesthesia Post-Op ---
Anesthesia Post OP - Post Ansesthetic Evaluation Patient seen in post op: Yes Resp: within normal limits CV: within normal limits Mental: within normal limits Temp: within normal limits [id number]: within normal limits Nausea and Vomiting: within normal limits Pain: within normal limits
[2016-11-17] MEDS ORDERED: ENOXAPARIN 40 MG/0.4 ML SYRINGE SUBCUT SCH (18:00)
[2016-11-18] MEDS: LACTATED RINGERS 1,000 ML IV SCH (04:14)
[2016-11-18 06:05] LABS: Basophils % 0.1 % (0.0-0.8); Hematocrit 29.9 VOL% (42.0-52.0); Immature Granulocytes % 0.6 %; Immature Granulocytes Absolute 0.05 #; Lymphocytes # 0.6 10*3/uL (1.4-4.0); Lymphocytes % 7.5 % (21.2-54.2); Mean Corpuscular HGB Conc 33.4 GM/DL (32-36); Mean Corpuscular Hemoglobin 30 PG (27-34); Mean Corpuscular Volume 90.6 FL (87-102); Mean Platelet Volume 10.6 FL (9.6-12.0); Monocytes # 0.5 10*3/uL (0.11-0.8); Monocytes % 6.2 % (1.7-12.7); Neutrophils # 7.3 10*3/uL (1.4-7.4); Neutrophils % 85.6 % (38.7-73.9); Platelet Count 185 T/CUMM (130-400); White Blood Count 8.6 T/CUMM (4-12)
[2016-11-18 06:34] LABS: Potassium 4.1 MMOL/L (3.5-5.1)
[2016-11-18 06:53] VITALS: BP 110/58
--- NOTE | 2016-11-18 07:48 | Discharge Summary ---
Hospital Course - Hospital Course Hospital Course: 81-year-old male with history of hypertension, GERD, hyperlipidemia admitted by Dr. Torres on 11/16/2016 with right upper quadrant abdominal pain. He had been having an hepatic cyst treated with intermittent drainage but his pain it worsened in the right upper quadrant and workup in the ER revealed gallbladder wall thickening with sludge. He was taken to the operating room on 11/17/[address] Torres for laparoscopic cholecystectomy where acute cholecystitis was found. Patient has done well postoperatively. He is tolerating a diet and his pain is controlled. He will be discharged home with a 1-2 week follow-up with Dr. Torres. Complete discharge instructions were given. Care coordination, chart review, and completed discharge paperwork took approximately 32 minutes. - Time spent with patient Time with patient DS: Greater than 30 minutes Diagnosis - Discharge Diagnosis (1) Hyperlipidemia Status: Chronic (2) Hypertension Status: Chronic (3) Liver lesion Status: Chronic (4) Abdominal pain Status: Resolved (5) Acute cholecystitis Status: Resolved Specialty Discharge - Follow Up or Referrals Follow up with: Arnaud Torres MD [Physician] - 12/04/16 9:15 am Discharge Plan - Discharge Data Disposition: Disch To Home/Self Care Condition at Discharge: Stable Discharge Diet: advance to your usual diet Activity: increase activity as tolerated, no lifting Hygiene: may shower Driving: other (No driving if taking pain pills) Contact your physician if you experience:: fever over 101, Redness or swelling, Nausea/Vomiting - Discharge Medications New HYDROcodone/ACETAMIN 7.5-325 [[place] 7.5-325] 1 tablet PO Q4H PRN #30 tablet PRN Reason: Pain Moderate (4-7) Continue Esomeprazole Magnesium [Nexium] 40 mg PO DAILY Pravastatin [Pravachol] 10 mg PO QAM Lisinopril 20 mg PO BID Cholecalciferol (Vitamin D3) [Vitamin D3] 1,000 unit PO QAM Potassium 99 mg PO QAM Tamsulosin HCl 0.4 mg PO DAILY Ondansetron Odt Tab [Zofran Odt] 4 mg PO Q6H PRN #20 tablet PRN Reason: Nausea/Vomiting Aspirin [Aspirin EC] 81 mg PO DAILY Cyanocobalamin Tab [Vitamin B12 Tab] 500 mcg PO QAM Venlafaxine [Effexor] 75 mg PO DAILY Omeprazole [Prilosec] 20 mg PO DAILY #30 capsule Discontinued HYDROcodone/ACETAMIN 10-325 [[place] 10-325] 1 tablet PO BID PRN PRN Reason: Pain - Follow Up or Referral Follow Up: Arnaud Torres MD [Physician] - 12/04/16 9:15 am - Forms/Instructions Instructions: Laparoscopic Cholecystectomy (DC) Exam - Constitutional Vitals: Period Temp Pulse Resp BP Sys/Wild Pulse Ox Last 24 Hr 97.6 F-99.6 F 54-82 14-20 107-131/58-73 95-100 Exam: 81-year-old male, no acute distress, alert and oriented Chest clear CV regular rate and rhythm [place] abdomen soft, appropriately tender, incisions look good Extremities no edema Discharge Results Labs on day of discharge: Labs from last 24 hours 11/18/16 11/18/16 11/17/16 04:49 04:49 11:49 WBC 8.6 RBC 3.30 L Hgb 10.0 L Hct 29.9 L MCV 90.6 MCH 30 MCHC 33.4 RDW 14.0 Plt Count 185 MPV 10.6 Neut % (Auto) 85.6 H Lymph % (Auto) 7.5 L [place] % (Auto) 6.2 Eos % (Auto) 0.0 Baso % (Auto) 0.1 Neut # (Auto) 7.3 Lymph # (Auto) 0.6 L [place] # (Auto) 0.5 Eos # (Auto) 0.0 Baso # (Auto) 0.0 Immature Gran % 0.6 Nucleated RBC % 0.0 Immature Gran # 0.05 Nucleated RBCs # 0.00 Sodium 143 Potassium 4.1 Chloride 108 H Carbon Dioxide 27 Anion Gap 12.1 BUN 20 H Creatinine 1.00 GFR Calculation 80 BUN/Creatinine Ratio 20.00 Glucose 141 H POC Glucose 91 Calculated Osmolality 289.0 Calcium 8.0 L DS: Provider Date of admission: 11/16/16 19:50 Primary care physician: Gareth Redmond DO Attending physician on admission: Arnaud Torres MD Consults: 11/16/16 22:27 Consult to Anesthesiology [CONS] Routine Consulting Provider: Reason for Anesthesiology: Pre-op Clearance Consult to Physician [CONS] Routine Comment: established patient Consulting Provider: Gareth Redmond Consulting Provider Notified: Yes When should Consulting Provider be notified: Now Person Notified: juliane worthy Date Notified: 11/17/16 Time Notified: 12:19 Consult Notification Comment: message left at 8:38 on 11/17/16 11/16/16 23:24 Consult to Dietitian [CONS] Routine Reason for Dietitian: Dietary Consult Consult Comment: weight loss Discharging clinician: TEREZA Marlow Expected date of discharge: 11/18/16
[2016-11-18] MEDS: CHOLECALCIFEROL 1,000 UNIT TABLET PO SCH (08:21)
[2016-11-18] MEDS: PANTOPRAZOLE 40 MG TABLET PO SCH (08:21)
[2016-11-18] MEDS: VENLAFAXINE 75 MG TABLET PO SCH (08:21)
[2016-11-18] MEDS: CYANOCOBALAMIN 500 MCG TABLET PO SCH (08:21)
[2016-11-18] MEDS: TAMSULOSIN 0.4 MG CAPSULE PO SCH (08:21)
[2016-11-18] MEDS: POTASSIUM GLUCONATE 500 MG TABLET PO SCH (08:21)
[2016-11-18] MEDS: ASPIRIN EC 81 MG TABLET PO SCH (08:21)
[2016-11-18] MEDS: PRAVASTATIN 20 MG TABLET PO SCH (08:21)
--- NOTE | 2016-11-18 09:13 | Consultation ---
Assessment and Plan (1) Abdominal pain Status: Acute Assessment and plan: 11/17/2016: Stable, status post cholecystectomy and patient is resting well at this time Current Visit: Yes (2) Biliary colic Status: Acute Assessment and plan: 11/17/2016: We will check a lab in the morning with repeat physical evaluation Current Visit: Yes History of Present Illness - Consult Narrative Reason for consult: Medical management History of present illness: Mr. Zepeda is a 81 year old male Well-known to me with a history of known's hepatic cyst, hypertension, gastroesophageal reflux, and hypercholesterolemia. Has had right upper quadrant pain off and on for a year or so. Historically has had the appendix is draining, which is complicated situation. Nonetheless came in with right upper quadrant pain and her ultrasound had acute cholecystitis. Was admitted for cholecystectomy and will be following along medically. His CBC and CMP at this time are reasonably normal and not having any other complaints such as fever chest pain or shortness of breath. Very pleasant man and appreciate consult from surgery CC: Arnaud Torres MD - Home Medications and Allergies Home Medications: Home Medications Medication Instructions Recorded Confirmed Type Esomeprazole Magnesium [Nexium] 40 mg PO DAILY 08/17/14 11/16/16 History Pravastatin [Pravachol] 10 mg PO QAM 08/17/14 11/16/16 History Aspirin [Aspirin EC] 81 mg PO DAILY 09/07/16 11/16/16 History Cholecalciferol (Vitamin D3) 1,000 unit PO QAM 09/07/16 11/16/16 History [Vitamin D3] Cyanocobalamin Tab [Vitamin B12 500 mcg PO QAM 09/07/16 11/16/16 History Tab] Lisinopril 20 mg PO BID 09/07/16 11/16/16 History Potassium 99 mg PO QAM 09/07/16 11/16/16 History Tamsulosin HCl 0.4 mg PO DAILY 09/07/16 11/16/16 History Venlafaxine [Effexor] 75 mg PO DAILY 11/10/16 11/16/16 History Omeprazole [Prilosec] 20 mg PO DAILY #30 capsule 11/14/16 11/16/16 Rx Ondansetron Odt Tab [Zofran Odt] 4 mg PO Q6H PRN #20 tablet 11/14/16 11/16/16 Rx HYDROcodone/ACETAMIN 7.5-325 1 tablet PO Q4H PRN #30 tablet 11/17/16 Rx [[place] 7.5-325] Allergies/Adverse Reactions: Allergies Allergy/AdvReac Type Severity Reaction Status Date / Time Sulfa (Sulfonamide AdvReac Intermediate Palpitation Verified 11/16/16 18:23 Antibiotics) s diazepam [From Valium] AdvReac Mild Nausea Verified 11/16/16 18:23 12 point system: reviewed and no additional remarkable complaints except as stated (Those mentioned above in the history and physical) Medical,Surgical,& Family Hx - Medical History Cardio: History of: Hypertension Psychological: History of: Depression Neurology: No history of: Seizures HEENT: History of: Eye Problem (GLASSES), HEENT Problems (Sinus Surgery) No history of: Ear Problem, Dental Problems Endocrine: History of: Dyslipidemia Rheumatology: History of;: Rheumatoid Arthritis Respiratory: History of: Respiratory Problems (SINUS SURGERY; Flu Vac Current Season) No history of: Pneumonia (Pneum Vac around 2013) Genitourinary: History of: Bladder Problem (TURB), Prostate Problems (BPH), Problems (ON MED FOR URINATING PROBLEM) Gastrointestinal: History of: GERD, Liver Problems (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-drained 11/12/16 ) Musculoskeletal: History of: Back/Neck Problems, Musculoskeletal Problems ( Arthritis) Hematology: No history of: Blood Transfusion Reaction (Hx Transfusions) Other: History of: Anesthesia Reactions (N/V), MRSA (Dx past sinus Surgery; Prostate Surgery) No history of: Cancer - Surgical History Cardiac Surgeries: Sugical HX of: Cardiac Catheterization (Negative; Several years ago) HEENT Surgeries: Surgical HX of: Eye Surgery (CATARACTS), Tonsilectomy & Adenoidectomy Abdominal Surgeries: Surgical HX of: Colonoscopy, EGD, Hernia Repair (Umbilical Hernia) Reproductive Surgeries: Surgical HX of;: Cystoscopy, Genitourinary Surgery ( TURB 30 yrs ago), Prostate Surgery Orthopedic Surgeries: Surgical HX of;: Orthopedic Surgery (Lt Rotator Cuff), Spinal Surgery (L3,4,5; 08/27/16 "Major Back Surgery in [place]-Plates/Pins") - Family History Family History: Reports;: Family Cancer (Father (brain)), Family Heart Disease ( Father), Family Hypertension (Father), Family Stroke (Mother) - Social History Smoking Status: Former smoker Frequency of Alcohol Use: None Type of Drug Use: None Exam - Constitutional Vitals: Period Temp Pulse Resp BP Sys/Wild Pulse Ox Last 24 Hr 97.6 F-99.6 F 54-82 14-20 107-131/58-73 95-100 Exam: Well-developed no acute distress except for the right upper quadrant pain. HEENT essentially negative neck supple trachea midline Vascular rate regular no gallop or rub Lungs are clear Positive right upper quadrant tenderness with palpation and at rest. Extremities no clubbing cyanosis or edema Results - Labs CBC & BMP: 11/18/16 04:49 11/18/16 04:49 Specialty Discharge - Follow Up or Referrals Follow up with: Arnaud Torres MD [Physician] - 12/04/16 9:15 am
--- NOTE | 2016-11-18 09:18 | Family Practice Progress Note ---
Family Practice - PN: Subj Interval history: Patient seen this morning he is doing very well is been up and able to ambulate. Has been eating well and is no acute distress and states that he is not having any significant pain at this time. Agree with discharge and I will follow up with him next week. Appreciate surgery on this case Exam (Progress Note) - Constitutional Vitals: Period Temp Pulse Resp BP Sys/Wild Pulse Ox Last 24 Hr 97.6 F-99.6 F 54-82 14-20 107-131/58-73 95-100 Exam: Well-developed no acute distress except for the right upper quadrant pain. HEENT essentially negative neck supple trachea midline Vascular rate regular no gallop or rub Lungs are clear Only minimal pain at the surgical puncture sites. Positive bowel sounds present Extremities no clubbing cyanosis or edema Results - Labs CBC & BMP: 11/18/16 04:49 11/18/16 04:49 Assessment and Plan (1) Abdominal pain Status: Acute Assessment and plan: 11/17/2016: Stable, status post cholecystectomy and patient is resting well at this time [id number]: Stable patient is ready to go home and desires this. Only residual abdominal discomfort Current Visit: Yes (2) Biliary colic Status: Acute Assessment and plan: 11/17/2016: We will check a lab in the morning with repeat physical evaluation Current Visit: Yes Specialty Discharge - Follow Up or Referrals Follow up with: Arnaud Torres MD [Physician] - 12/04/16 9:15 am
--- NOTE | 2016-11-19 13:20 | Pathology Report from [facility] ---
[facility] [place] # : [id number] PATIENT NAME : Marcus Macedo ORDERING DR : Arnaud Torres MD CLINICAL HX: Acute cholecystitis POST-OP DX: Same SPECIMEN INFO: Gallbladder GROSS DESCRIPTION: The specimen is received in formalin labeled with the patients name and consists of a focally opened gallbladder measuring 8.7 x 4.6 cm. The serosa is hyperemic, fatty. The wall averages 0.3 cm in thickness. The mucosa is yellow, hemorrhagic, shaggy and focally ulcerated. The lumen contains trejo-green viscous bile. No stones identified. Intelligence Clerk sections submitted in one cassette. 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 Benign periductal lymph node. COLLECTED DATE: 11/17/2016 [facility] [place] DATE: 11/18/2016 ELECTRONICALLY SIGNED BY: Rhianna Parra M.D. 11/18/2016 - 11:35:54 [email or web address]
== END 2016-11-18 09:49 | disposition home or self-care (01) | DRG 419 ==
LOC: N.ED 18:18 → N.EDINP 19:50 → N.3E 20:31
PROVIDERS: ADMIT Surgery; ATTEND Surgery
PROC: LAPCHOL (2016-11-17 12:42)

== ENCOUNTER 2022-04-21 10:47 | Inpatient (IN) ==
[2022-04-21] MEDS ORDERED: ACETAMINOPHEN 325 MG TABLET PO PRN (10:59)
[2022-04-21] MEDS ORDERED: DOCUSATE SODIUM 100 MG CAPSULE PO PRN (10:59)
[2022-04-21] MEDS ORDERED: ONDANSETRON 4 MG/2 ML VIAL IV PRN (10:59)
[2022-04-21] MEDS ORDERED: INFLUENZA VIRUS VACCINE 0.5 ML SYRINGE IM ONE (12:10)
[2022-04-21 12:23] LABS: Basophils % 0.5 % (0.0-0.8); Eosinophils # 0.3 10*3/uL (0.0-0.87); Eosinophils % 4.4 % (0.00-10.9); Hematocrit 34.5 VOL% (42.0-52.0); Hemoglobin 11.3 GM/DL (14.0-18.0); Immature Granulocytes % 0.5 %; Immature Granulocytes Absolute 0.03 #; Lymphocytes # 1.4 10*3/uL (1.4-4.0); Lymphocytes % 21.9 % (21.2-54.2); Mean Corpuscular HGB Conc 32.8 GM/DL (32-36); Mean Corpuscular Volume 98.3 FL (87-102); Mean Platelet Volume 10.1 FL (9.6-12.0); Monocytes # 0.7 10*3/uL (0.11-0.8); Monocytes % 10.7 % (1.7-12.7); Platelet Count 215 T/CUMM (130-400); Red Blood Count 3.51 MC/CUMM (3.8-5.5); Red Cell Distribution Width 13.2 % (9.3-17.3); White Blood Count 6.4 T/CUMM (4-12)
[2022-04-21 12:46] LABS: Alanine Aminotransferase 31 U/L (16-61); Albumin 3.9 G/DL (3.4-5.0); Alkaline Phosphatase 87 U/L (45-117); Aspartate Amino Transferase 28 U/L (0-37); Bilirubin,Total < 0.39 MG/DL (0.20-1.00); Blood Urea Nitrogen 21 MG/DL (7-18); Calcium 8.5 MG/DL (8.5-10.1); Carbon Dioxide 29 MMOL/L (21-32); Chloride 109 MMOL/L (98-107); Glucose 100 MG/DL (74-106); Osmolality,Calculated 281.4 MOS/KG (273-304); Potassium 4.4 MMOL/L (3.5-5.1); Sodium 140 MMOL/L (136-145); Total Protein 7.5 G/DL (6.4-8.2)
[2022-04-21] MEDS: PIPERACILLIN/TAZOBACTAM 3,375 MG in SODIUM CHLORIDE 0.9% 100 ML IV SCH ×2 (14:54→20:53)
[2022-04-21] MEDS: ENOXAPARIN 40 MG/0.4 ML SYRINGE SUBCUT SCH (14:54)
[2022-04-21] MEDS: SODIUM CHLORIDE 0.9% 1,000 ML IV SCH ×2 (20:53→23:56)
[2022-04-21] MEDS ORDERED: diphenhydrAMINE CAP 25 MG CAPSULE PO ONE (23:26)
[2022-04-22] MEDS: PIPERACILLIN/TAZOBACTAM 3,375 MG in SODIUM CHLORIDE 0.9% 100 ML IV SCH ×2 (06:06→15:14)
[2022-04-22] MEDS ORDERED: SCOPOLAMINE 1.5 MG PATCH TRANSDERM ONE (07:00)
[2022-04-22] MEDS: PANTOPRAZOLE 40 MG TABLET PO SCH (08:20)
[2022-04-22] MEDS: SIMVASTATIN 10 MG TABLET PO SCH (08:20)
[2022-04-22] MEDS: lisinopriL 20 MG TABLET PO SCH (08:20)
[2022-04-22] MEDS: FUROSEMIDE 40 MG TABLET PO SCH (08:20)
[2022-04-22] MEDS: TAMSULOSIN 0.4 MG CAPSULE PO SCH (08:20)
[2022-04-22] MEDS ORDERED: BUPIVACAINE MPF 0.25% 10 ML VIAL ONE (12:45)
[2022-04-22] MEDS ORDERED: LIDOCAINE 1%/EPI INJ 20 ML VIAL ONE (12:45)
[2022-04-22] MEDS ORDERED: fentaNYL 100 MCG/2 ML VIAL ONE (12:49)
[2022-04-22] MEDS ORDERED: propofoL 200 MG/20 ML VIAL IV ONE ×2 (12:57→13:22)
[2022-04-22] MEDS ORDERED: LIDOCAINE 2% 5 ML VIAL ONE (12:57)
[2022-04-22] MEDS ORDERED: LACTATED RINGERS 1,000 ML IV SCH (13:00)
[2022-04-22] MEDS: SODIUM CHLORIDE 0.9% 1,000 ML IV SCH (15:13)
[2022-04-22] MEDS: ENOXAPARIN 40 MG/0.4 ML SYRINGE SUBCUT SCH (15:14)
[2022-04-22] MEDS: ZALEPLON 5 MG CAPSULE PO SCH (20:38)
[2022-04-23] MEDS: PIPERACILLIN/TAZOBACTAM 3,375 MG in SODIUM CHLORIDE 0.9% 100 ML IV SCH ×3 (00:47→14:51)
[2022-04-23 06:15] LABS: Basophils % 0.4 % (0.0-0.8); Eosinophils # 0.2 10*3/uL (0.0-0.87); Eosinophils % 2.8 % (0.00-10.9); Hematocrit 33.7 VOL% (42.0-52.0); Hemoglobin 10.7 GM/DL (14.0-18.0); Immature Granulocytes % 0.8 %; Immature Granulocytes Absolute 0.07 #; Lymphocytes # 1.3 10*3/uL (1.4-4.0); Lymphocytes % 14.7 % (21.2-54.2); Mean Corpuscular HGB Conc 31.8 GM/DL (32-36); Mean Corpuscular Volume 101.5 FL (87-102); Mean Platelet Volume 10.2 FL (9.6-12.0); Monocytes # 0.8 10*3/uL (0.11-0.8); Monocytes % 9.3 % (1.7-12.7); Platelet Count 217 T/CUMM (130-400); Red Blood Count 3.32 MC/CUMM (3.8-5.5); Red Cell Distribution Width 13.3 % (9.3-17.3); White Blood Count 8.5 T/CUMM (4-12)
[2022-04-23 06:40] LABS: Calcium 8.5 MG/DL (8.5-10.1); Osmolality,Calculated 282.3 MOS/KG (273-304)
[2022-04-23] MEDS: SODIUM CHLORIDE 0.9% 1,000 ML IV SCH (09:44)
[2022-04-23] MEDS: TAMSULOSIN 0.4 MG CAPSULE PO SCH (09:45)
[2022-04-23] MEDS: PANTOPRAZOLE 40 MG TABLET PO SCH (09:46)
[2022-04-23] MEDS: FUROSEMIDE 40 MG TABLET PO SCH (09:46)
[2022-04-23] MEDS: SIMVASTATIN 10 MG TABLET PO SCH (09:46)
[2022-04-23] MEDS: lisinopriL 20 MG TABLET PO SCH (09:46)
[2022-04-23] MEDS: ENOXAPARIN 40 MG/0.4 ML SYRINGE SUBCUT SCH (14:52)
[2022-04-23] MEDS: ZALEPLON 5 MG CAPSULE PO SCH (21:50)
[2022-04-24] MEDS: SODIUM CHLORIDE 0.9% 1,000 ML IV SCH (08:46)
[2022-04-24] MEDS: PIPERACILLIN/TAZOBACTAM 3,375 MG in SODIUM CHLORIDE 0.9% 100 ML IV SCH ×4 (08:58→23:12)
[2022-04-24] MEDS: FUROSEMIDE 40 MG TABLET PO SCH (08:59)
[2022-04-24] MEDS: SIMVASTATIN 10 MG TABLET PO SCH (08:59)
[2022-04-24] MEDS: PANTOPRAZOLE 40 MG TABLET PO SCH (08:59)
[2022-04-24] MEDS: lisinopriL 20 MG TABLET PO SCH (08:59)
[2022-04-24] MEDS: TAMSULOSIN 0.4 MG CAPSULE PO SCH (08:59)
[2022-04-24] MEDS: ZALEPLON 5 MG CAPSULE PO SCH (20:52)
[2022-04-25 05:18] LABS: Basophils % 0.3 % (0.0-0.8); Eosinophils # 0.4 10*3/uL (0.0-0.87); Eosinophils % 6.6 % (0.00-10.9); Hematocrit 31.5 VOL% (42.0-52.0); Hemoglobin 10.2 GM/DL (14.0-18.0); Immature Granulocytes % 0.5 %; Immature Granulocytes Absolute 0.03 #; Lymphocytes # 1.2 10*3/uL (1.4-4.0); Lymphocytes % 19.1 % (21.2-54.2); Mean Corpuscular HGB Conc 32.4 GM/DL (32-36); Mean Platelet Volume 10.3 FL (9.6-12.0); Monocytes # 0.7 10*3/uL (0.11-0.8); Monocytes % 10.7 % (1.7-12.7); Neutrophils % 62.8 % (38.7-73.9); Platelet Count 183 T/CUMM (130-400); Red Blood Count 3.12 MC/CUMM (3.8-5.5); Red Cell Distribution Width 13.4 % (9.3-17.3); White Blood Count 6.4 T/CUMM (4-12)
[2022-04-25 05:38] LABS: Osmolality,Calculated 284.1 MOS/KG (273-304); Potassium 3.7 MMOL/L (3.5-5.1)
[2022-04-25] MEDS: SODIUM CHLORIDE 0.9% 1,000 ML IV SCH (06:34)
[2022-04-25] MEDS ORDERED: CLINDAMYCIN 300 MG CAPSULE PO ONE (08:31)
[2022-04-25] MEDS: PANTOPRAZOLE 40 MG TABLET PO SCH (10:14)
[2022-04-25] MEDS: SIMVASTATIN 10 MG TABLET PO SCH (10:15)
[2022-04-25] MEDS: lisinopriL 20 MG TABLET PO SCH (10:15)
[2022-04-25] MEDS: FUROSEMIDE 40 MG TABLET PO SCH (10:16)
[2022-04-25] MEDS: TAMSULOSIN 0.4 MG CAPSULE PO SCH (10:16)
[2022-04-25] MEDS: PIPERACILLIN/TAZOBACTAM 3,375 MG in SODIUM CHLORIDE 0.9% 100 ML IV SCH (10:17)
[2022-04-25 13:55] VITALS: BP 151/61
== END 2022-04-25 13:31 | disposition home health service (06) | DRG 580 ==
LOC: N.2W → INTOOBSV 11:35 → OBSVTOIN 11:35
PROVIDERS: ADMIT Family Medicine; ATTEND Family Medicine